=== PATIENT | female | born 1995 | race Caucasian/White ===

== ENCOUNTER 2016-06-16 10:26 | Emergency (ER) | payer BC | END 2016-06-16 11:56 | disposition left against medical advice (07) | LOC: UCCORT 10:26 | DX: O21.9 Vomiting of pregnancy, unspecified (principal); Z3A.18 18 weeks gestation of pregnancy; Z53.21 Procedure and treatment not carried out due to patient leaving prior to being seen by health care provider ==

== ENCOUNTER 2016-06-16 12:04 | Emergency (ER) | payer BC ==
[2016-06-16 13:45] VITALS: BP 146/84
[2016-06-16] MEDS ORDERED: NS 0.9% 1000 ML* 1,000 ML IV ONE (15:07)
[2016-06-16] MEDS ORDERED: Metoclopramide IV* 5 MG/ML 2 ML VIAL IV SLOW PU ONE (15:08)
--- NOTE | 2016-06-16 15:14 | UC ---
Abdominal Pain Female HPI - HPI Summary HPI Summary: vomiting started last night around 11pm. Boyfriend ill with same. No fever. Vomited about 6 times, diarrhea about 4 times, none bloody. Can't eat or drink anything today. Dizzy when standing up. She is 18 weeks . No urinary symptoms - History of Current Complaint Chief Complaint: UCGeneralIllness Stated Complaint: VOMITING Time Seen by Provider: 06/16/16 15:00 Hx Obtained From: Patient Hx Last Menstrual Period: pt has implanon and does not get a menses Onset/Duration: Gradual Onset Severity Initially: Mild Severity Currently: Moderate Location: Diffuse Radiates: No Character: Aching, Dull Aggravating Factor(s): Food Alleviating Factor(s): Nothing Associated Signs and Symptoms: Positive: Dizzy - when standing up suddenly, Decreased Appetite, Nausea, Vomiting, Diarrhea. Negative: Fever, Cough, Chest Pain, Blood in Stool, Urinary Symptoms, Vaginal Bleeding, Vaginal Discharge - Risk Factors Ectopic Risk Factor: Negative Ovarian Torsion Risk Factor: Negative Allergies/Adverse Reactions: Allergies Allergy/AdvReac Type Severity Reaction Status Date / Time Penicillins Allergy Hives Verified 06/16/16 13:45 Home Medications: Home Medications Vitamin TAB* 1 tab PO DAILY 06/16/16 [History Confirmed 06/16/16] Saccharomyces Boulardii [Probiotic] 250 mg PO DAILY 06/16/16 [History Confirmed 06/16/16] PMH/Surg Hx/FS Hx/Imm Hx Previously Healthy: Yes Endocrine History Of: Denies: Diabetes, Thyroid Disease Cardiovascular History Of: Denies: Cardiac Disorders, Hypertension Respiratory History Of: Denies: COPD, Asthma - Surgical History Surgical History: None - Family History Known Family History: Positive: Hypertension - Social History Occupation: Employed Full-time Lives: With Family Alcohol Use: Occasionally Substance Use Type: None Smoking Status (MU): Never Smoked Tobacco - Immunization History Most Recent Influenza Vaccination: current Review of Systems Constitutional: Fatigue Skin: Negative Eyes: Negative ENT: Negative Respiratory: Negative Cardiovascular: Negative Gastrointestinal: Abdominal Pain, Vomiting, Diarrhea Genitourinary: Negative Motor: Negative Neurovascular: Negative Musculoskeletal: Negative Neurological: Negative Psychological: Negative All Other Systems Reviewed And Are Negative: Yes Physical Exam Triage Information Reviewed: Yes Appearance: Well-Appearing, No Pain Distress, Well-Nourished Vital Signs: Initial Vital Signs Temp 98.4 F 01/23/17 13:40 Pulse 117 06/16/16 13:40 Resp 16 06/16/16 13:40 BP 146/84 06/16/16 13:40 Pulse Ox 100 06/16/16 13:40 Vital Signs Reviewed: Yes Eye Exam: Normal Eyes: Positive: Conjunctiva Clear ENT: Positive: Hearing grossly normal, Pharynx normal. Negative: Muffled/ hoarse voice Neck exam: Normal Neck: Positive: Supple Respiratory Exam: Normal Respiratory: Positive: Lungs clear, Normal breath sounds Cardiovascular: Positive: Tachycardia - 117 Abdomen Description: Positive: Soft, Other: - mild diffuse lower abdominal tenderness. No guarding or rebound. Uterus palpable above pelvic brim. Negative : CVA Tenderness (R), CVA Tenderness (L), Distended, Guarding, Hernia @, Hepatomegaly, McBurney's Point Tenderness, Peritoneal Signs, Pulsatile Mass, Splenomegaly Bowel Sounds: Positive: Present Musculoskeletal Exam: Normal Neurological Exam: Normal Psychological Exam: Normal Skin Exam: Normal Diagnostics - Laboratory ABG Interpretation: U/A without signs of infection Re-Evaluation - Re-Evaluation First Eval Re-Evaluation Time: 16:10 Change: Improved - able to sip joe popeye. No vomiting here. Feels better Abd Pain Female Course/Dx - Differential Dx/Diagnosis Provider Diagnoses: gastroenteritis Discharge - Discharge Plan Condition: Stable Disposition: HOME Prescriptions: Promethazine TAB* [Phenergan TAB*] 25 mg PO Q8H PRN #6 tab PRN Reason: Nausea Patient Education Materials: Gastroenteritis (ED) Forms: *Work Release
== END 2016-06-16 16:16 | disposition home or self-care (01) ==
LOC: UCCORT 12:04
DX: O99.612 Diseases of the digestive system complicating pregnancy, second trimester (principal); K52.9 Noninfective gastroenteritis and colitis, unspecified; Z3A.18 18 weeks gestation of pregnancy; Z88.0 Allergy status to penicillin
CPT/HCPCS: 96361; 96374; 99212; G0463; J2765

== ENCOUNTER 2016-10-21 19:37 | Inpatient (IN) | payer BC ==
[2016-10-21] MEDS ORDERED: Dinoprostone* 10 MG VAG.SUPP VAGINAL ONE (20:01)
[2016-10-21] MEDS ORDERED: MAGNESIUM SULF IVPB ONE (20:17)
[2016-10-21 21:08] LABS: Hematocrit 34 % (35-47); Hemoglobin 11.6 g/dl (12.0-16.0); Mean Corpuscular HGB Conc 34 g/dl (31-36); Mean Corpuscular Hemoglobin 30 pg (27-31); Mean Corpuscular Volume 88 fL (80-97); Mean Platelet Volume 10 um3 (7.4-10.4); Red Blood Count 3.84 10^6/ul (4.0-5.4); Red Cell Distribution Width 13 % (10.5-15); White Blood Count 11.3 10^3/ul (3.5-10.8)
[2016-10-21] MEDS: Magnesium Sulfate OB PREMIX* 40 GM/1,000 ML BAG IVPB SCH (21:19)
[2016-10-21 21:21] LABS: Albumin 3.1 g/dL (3.2-5.2); BUN/Creatinine Ratio 17.5 (8-20); Calcium 9.2 mg/dL (8.6-10.3); EGFR Non-African American 131.4 (>60); Globulin 3.1 g/dL (2-4); Total Bilirubin 0.2 mg/dL (0.2-1.0); Total Protein 6.2 g/dL (6.4-8.9); Uric Acid 5.3 mg/dL (2.3-6.6)
[2016-10-21 21:24] LABS: Potassium 3.9 mmol/L (3.5-5.0)
[2016-10-21] MEDS ORDERED: Labetalol IV* 5 MG/ML 20 ML VIAL IV PUSH ONE ×2 (22:55→23:30)
[2016-10-21] MEDS ORDERED: Labetalol IV* 5 MG/ML 20 ML VIAL ONE (22:55)
[2016-10-21] MEDS ORDERED: Clindamycin 900 MG IVPREMIX(* 900 MG/50 ML SDV IV ONE (23:43)
[2016-10-21] MEDS ORDERED: Sodium Citrate/Citric Acid* 15 ML UDC PO ONE (23:45)
[2016-10-22] MEDS ORDERED: Morphine PF AMP (0.5MG/ML)* 5 MG/10 ML AMP ONE (00:34)
[2016-10-22] MEDS ORDERED: OXYTOCIN* 10 UNITS/ML 1 ML VIAL ONE (01:07)
[2016-10-22] MEDS ORDERED: Phenylephrine IV* 40 MCG/ML 10 ML SYRINGE ONE ×2 (01:07→01:22)
[2016-10-22] MEDS ORDERED: Ondansetron INJ* 2 MG/ML VIAL ONE (01:15)
[2016-10-22] MEDS ORDERED: oxyCODONE TAB* 5 MG TAB PO PRN (01:29)
[2016-10-22] MEDS ORDERED: Ondansetron INJ* 2 MG/ML VIAL IV PRN (01:29)
[2016-10-22] MEDS ORDERED: Ibuprofen TAB* 600 MG PO PRN (01:29)
[2016-10-22] MEDS ORDERED: Nalbuphine* 20 MG/ML 1 ML VIAL IV PRN (01:29)
[2016-10-22] MEDS ORDERED: Naloxone* 0.4 MG/ML 1 ML VIAL IV PRN (01:29)
[2016-10-22] MEDS ORDERED: Acetaminophen TAB* 325 MG PO PRN ×2 (01:29→17:30)
[2016-10-22] MEDS ORDERED: diPHENhydraMINE IV* 50 MG/ML 1 ml VIAL (BENADRYL) IV PRN (01:29)
[2016-10-22] MEDS ORDERED: DiMENhydriNATE IV* 50 MG/ML VIAL IV PUSH PRN (01:29)
[2016-10-22] MEDS ORDERED: Zolpidem TAB* 5 MG PO PRN (01:45)
[2016-10-22] MEDS ORDERED: Witch Hazel PAD* JAR TOPICAL PRN (01:45)
[2016-10-22] MEDS ORDERED: Dibucaine 1% 28.35 GM TUBE PR PRN (01:45)
[2016-10-22] MEDS ORDERED: oxyCODONE/Acetamin 5/325 MG* TAB PO PRN ×2 (01:45→22:15)
[2016-10-22] MEDS ORDERED: Glycerin ADULT SUPP PR PRN (01:45)
[2016-10-22] MEDS ORDERED: Magnesium Sulfate 2 GM IV* 2 GM/50 ML BAG IVPB SCH (02:00)
[2016-10-22] MEDS ORDERED: Ibuprofen TAB* 600 MG ONE (03:03)
[2016-10-22] MEDS ORDERED: Oxytocin in LR* 20 UNITS/1,000 ML BAG IVPB ONE (03:20)
[2016-10-22] MEDS: oxyCODONE/Acetamin 5/325 MG* TAB PO PRN ×3 (04:41→16:02)
[2016-10-22] MEDS ORDERED: Dextrose 50% Syringe 50 ML* 25 GM/50 ML SYRINGE IV PUSH PRN (08:58)
[2016-10-22] MEDS: Docusate CAP* 100 MG PO SCH ×3 (09:32→20:56)
[2016-10-22] MEDS: Simethicone CHEW TAB* 80 MG PO SCH ×4 (09:32→21:04)
[2016-10-22] MEDS: Ibuprofen TAB* 600 MG PO PRN ×3 (09:37→23:42)
[2016-10-22] MEDS: Magnesium Sulfate OB PREMIX* 40 GM/1,000 ML BAG IVPB SCH (11:52)
[2016-10-22] MEDS: Insulin LISPRO* 1 UNITS UNIT SUBCUT SCH ×2 (12:05→18:45)
[2016-10-23] MEDS: oxyCODONE/Acetamin 5/325 MG* TAB PO PRN ×5 (01:25→21:32)
[2016-10-23] MEDS: Insulin LISPRO* 1 UNITS UNIT SUBCUT SCH ×3 (01:43→12:55)
[2016-10-23 06:55] LABS: Hematocrit 28 % (35-47); Hemoglobin 9.3 g/dl (12.0-16.0); Mean Corpuscular HGB Conc 34 g/dl (31-36); Mean Corpuscular Hemoglobin 30 pg (27-31); Mean Corpuscular Volume 89 fL (80-97); Mean Platelet Volume 9 um3 (7.4-10.4); Red Blood Count 3.09 10^6/ul (4.0-5.4); Red Cell Distribution Width 14 % (10.5-15); White Blood Count 11.5 10^3/ul (3.5-10.8)
[2016-10-23] MEDS: Ibuprofen TAB* 600 MG PO PRN ×3 (08:55→23:57)
[2016-10-23] MEDS: Simethicone CHEW TAB* 80 MG PO SCH ×4 (08:56→21:32)
[2016-10-23] MEDS: Docusate CAP* 100 MG PO SCH ×3 (08:56→21:32)
[2016-10-23] MEDS: Ferrous Gluconate TAB* 324 MG TAB PO SCH ×2 (08:56→21:32)
[2016-10-24] MEDS: Ibuprofen TAB* 600 MG PO PRN (06:10)
[2016-10-24] MEDS: oxyCODONE/Acetamin 5/325 MG* TAB PO PRN (06:11)
[2016-10-24] MEDS: Docusate CAP* 100 MG PO SCH (08:35)
[2016-10-24] MEDS: Ferrous Gluconate TAB* 324 MG TAB PO SCH (08:35)
[2016-10-24] MEDS: Simethicone CHEW TAB* 80 MG PO SCH (08:36)
[2016-10-24 11:05] VITALS: BP 148/74
== END 2016-10-24 12:30 | disposition home or self-care (01) | DRG 540 ==
LOC: MCHOBOUT 19:37 → MCHOB 20:23
PROVIDERS: ADMIT Obstetrics & Gynecology; ATTEND Obstetrics & Gynecology
PROC: 10D00Z1 Extraction of Products of Conception, Low, Open Approach (ICD-10-PCS; principal; 2016-10-21)
PROC: 3E033VJ Introduction of Other Hormone into Peripheral Vein, Percutaneous Approach (ICD-10-PCS; 2016-10-21)
PROC: 4A1HX4Z Monitoring of Products of Conception, Cardiac Electrical Activity, External Approach (ICD-10-PCS; 2016-10-21)
DX: O14.14 Severe pre-eclampsia complicating childbirth (principal); Z68.41 Body mass index [BMI] 40.0-44.9, adult; Z88.0 Allergy status to penicillin; Z3A.37 37 weeks gestation of pregnancy; Z37.0 Single live birth; O99.214 Obesity complicating childbirth; E66.9 Obesity, unspecified; O24.429 Gestational diabetes mellitus in childbirth, unspecified control; O13.4 Gestational [pregnancy-induced] hypertension without significant proteinuria, complicating childbirth; Z80.42 Family history of malignant neoplasm of prostate; O09.33 Supervision of pregnancy with insufficient antenatal care, third trimester; O90.81 Anemia of the puerperium
CPT/HCPCS: 36415; 80053; 84550; 85025; 86850; 86900; 86901; A9270-GY; J1580; J2405; J2590